=== PATIENT | female | born 2000 | race Caucasian/White ===

== ENCOUNTER 2018-01-10 00:49 | Emergency (ER) | payer OTHER ==
[~2018-01-10] VITALS: Ht 160 cm; Wt 49.9 kg
[2018-01-10 00:58] VITALS: BP 113/79
--- NOTE | 2018-01-10 01:05 | NUR ---
PATIENT AMBULATED TO ER [facility].
[2018-01-10 01:06] VITALS: BP 113/79
--- NOTE | 2018-01-10 01:06 | NUR ---
PATIENT IS A 17 Y/O FEMALE WHO PRESENTS TO THE ED C/O COUGH. PT STATES, "I WENT TO A URGENT AND GOT PRESCRIPTIONS BUT THEY HAVEN'T BEEN HELPING. PT REPORTS 7/10 PRESSURE PAIN ON THE CHEST THAT DOES NOT RADIATE. PT DENIES SOB, N/V/D. NOTED NON-PRODUCTIVE COUGH. LUNG SOUNDS CLEAR BL. PT AAOX4, RR EVEN/UNLABORED. PT REPOSITIONED FOR COMFORT, PT SITTING IN CHAIR. ANI PERALES NOTIFIED. WILL CONTINUE TO MONITOR. Addendum: 01/10/18 at 0108 by [facility] PATIENT IS A 17 Y/O FEMALE WHO PRESENTS TO THE ED C/O COUGH. PT STATES, "I WENT TO A URGENT AND GOT PRESCRIPTIONS BUT THEY HAVEN'T BEEN HELPING. PT REPORTS 7/10 PRESSURE PAIN ON THE CHEST THAT DOES NOT RADIATE. PT DENIES SOB, N/V/D. NOTED NON-PRODUCTIVE COUGH. LUNG SOUNDS CLEAR BL. PT AAOX4, RR EVEN/UNLABORED. PT REPOSITIONED FOR COMFORT, PT SITTING IN CHAIR. ANI PERALES NOTIFIED. WILL CONTINUE TO MONITOR. RX---AUGMENTIN, TESSALON PERRLES, PROMETHAZINE. Addendum: 01/10/18 at 0134 by [facility] PATIENT IS A 17 Y/O FEMALE WHO PRESENTS TO THE ED C/O COUGH. PT STATES, "I WENT TO AN URGENT CARE AND GOT PRESCRIPTIONS BUT THEY HAVEN'T BEEN HELPING." PT REPORTS 7/10 PRESSURE PAIN ON THE CHEST THAT DOES NOT RADIATE. PT DENIES SOB, N/V/D. NOTED NON-PRODUCTIVE COUGH. LUNG SOUNDS CLEAR BL. PT AAOX4, RR EVEN/UNLABORED. PT REPOSITIONED FOR COMFORT, PT SITTING IN CHAIR. ER MD DR. PERALES NOTIFIED. WILL CONTINUE TO MONITOR.
[2018-01-10] MEDS ORDERED: predniSONE 20 MG TAB PO ONE (01:35)
[2018-01-10] MEDS ORDERED: ALBUTEROL 0.083% 2.5 MG/3 ML NEBU INH ONE (01:35)
[2018-01-10] MEDS ORDERED: IPRATROPIUM 0.02% 0.5 MG/2.5 ML NEBU INH ONE (01:35)
--- NOTE | 2018-01-10 02:04 | NUR ---
Patient discharged with v/s stable. Written and verbal after care instructions given and explained. Patient alert, oriented and verbalized understanding of instructions. Ambulatory with steady gait. All questions addressed prior to discharge. ID band removed. Patient advised to follow up with PMD. Rx of ALBUTEROL, DOXYCYLINE AND PREDNISONE given. Patient educated on indication of medication including possible reaction and side effects. Opportunity to ask questions provided and answered.
== END 2018-01-10 02:05 | disposition home or self-care (01) ==
LOC: MED 00:49
DX: J20.8 Acute bronchitis due to other specified organisms (principal)
CPT/HCPCS: 81002; 81025; 94640; 99283; J7512; J7613; J7644

== ENCOUNTER 2018-07-12 20:48 | Emergency (ER) | payer OTHER ==
[~2018-07-12] VITALS: Ht 162.6 cm; Wt 53.6 kg
[2018-07-12 20:53] VITALS: BP 118/67
--- NOTE | 2018-07-12 20:58 | NUR ---
pt assisted back to lobby in stable condition
--- NOTE | 2018-07-12 22:36 | NUR ---
PT TO ER BED 5
--- NOTE | 2018-07-12 22:40 | NUR ---
PATIENT IS A 17 Y/O FEMALE WHO PRESENTS TO THE ED C/O ABD PAIN. PT STATES THAT IT HAS BEEN GOING ON X4 DAYS. PT REPORTS 4/10 SHARP RLQ PAIN THAT DOES NOT RADIATE. PT DENIES CP, SOB, N/V/D. PT AWAKE, ALERT, AMBULATORY, RR EVEN/UNLABORED. PT REPOSITIONED FOR COMFORT, BED IN LOWEST POSTIION. ER MD DR. THOMAS NOTIFIED. WILL CONTINUE TO MONITOR.
[2018-07-12] MEDS ORDERED: KETOROLAC 30 MG/ML VIAL IM ONE (23:30)
[2018-07-13 00:01] LABS: BASOPHILS % (AUTO) 0.3 % (0.0-2.0); EOSINOPHILS # (AUTO) 0.3 K/uL (0-0.4); EOSINOPHILS % (AUTO) 3.6 % (0.0-4.0); HEMATOCRIT 39.7 % (36-48); HEMOGLOBIN 13.3 g/dL (12.0-16.0); LYMPHOCYTES # (AUTO) 2.8 K/uL (2.5-16.5); LYMPHOCYTES % (AUTO) 37.7 % (20.5-51.1); MEAN CORPUSCULAR HEMOGLOBIN 30 pg (27-31); MEAN CORPUSCULAR HGB CONC 34 g/dL (33-37); MEAN CORPUSCULAR VOLUME 88.2 fL (80-94); MONOCYTES # (AUTO) 0.5 K/uL (0.8-1.0); MONOCYTES % (AUTO) 6.7 % (1.7-9.3); NEUTROPHILS # (AUTO) 3.9 K/uL (1.8-7.7); NEUTROPHILS % (AUTO) 51.7 % (42.2-75.2); PLATELET COUNT (AUTO) 233 K/uL (140-450); RED CELL DISTRIBUTION WIDTH 13.1 % (11.6-13.7); WHITE BLOOD COUNT (AUTO) 7.5 K/uL (4.5-11.0)
--- NOTE | 2018-07-13 00:01 | NUR ---
Patient taken to CT scan via wheelchair by tech.
--- NOTE | 2018-07-13 00:05 | NUR ---
Dr. Larose evaluating patient at bedside.
--- NOTE | 2018-07-13 00:09 | NUR ---
Patient returned from CT scan. RN re-evaluating patient at bedside.
[2018-07-13 00:19] LABS: ALBUMIN 4.6 g/dL (3.4-5.0); ANION GAP 10.3 (8-16); CARBON DIOXIDE 27.6 mmol/L (21-32); CREATININE 0.6 mg/dL (0.6-1.3); POTASSIUM 3.9 mmol/L (3.5-5.1); TOTAL BILIRUBIN 0.2 mg/dL (0.0-1.0)
[2018-07-13] MEDS ORDERED: HYDROcodone/APAP 5/325 MG 1 TAB TAB PO ONE (01:10)
--- NOTE | 2018-07-13 02:15 | NUR ---
PATIENT RESTING AT THIS TIME. NO SIGNS OF DISTRESS.
[2018-07-13 03:45] VITALS: BP 119/82
--- NOTE | 2018-07-13 03:45 | NUR ---
Patient discharged with v/s stable. Written and verbal after care instructions given and explained. Patient alert, oriented and verbalized understanding of instructions. Ambulatory with steady gait. All questions addressed prior to discharge. ID band removed. Patient advised to follow up with PMD. Rx of NAPROSYN 500MG AND TYLENOL WITH CODEINE NO.3 given. Patient educated on indication of medication including possible reaction and side effects. Opportunity to ask questions provided and answered.
== END 2018-07-13 03:45 | disposition home or self-care (01) ==
LOC: MED 20:48
DX: N83.209 Unspecified ovarian cyst, unspecified side (principal)
CPT/HCPCS: 36415; 74176; 76830; 80053; 81002; 81025; 85025; 86140; 96372; 99285; J1885